=== PATIENT | male | born 1995 | race Hispanic/Latino ===

== ENCOUNTER 2018-06-29 10:31 | Emergency (ER) | payer OTHER ==
[~2018-06-29] VITALS: Ht 167.6 cm; Wt 45.4 kg
[2018-06-29] MEDS ORDERED: CORTISPORIN OTI10 M2 AD (11:28)
[2018-06-29 11:32] VITALS: BP 117/64
== END 2018-06-29 11:32 | disposition home or self-care (01) | DRG 156 ==
LOC: ED 10:31
PROC: 09C37ZZ Extirpation of Matter from Right External Auditory Canal, Via Natural or Artificial Opening (ICD-10-PCS; principal; 2018-06-29)
DX: T16.1XXA Foreign body in right ear, initial encounter (principal); X58.XXXA Exposure to other specified factors, initial encounter